=== PATIENT | female | born 1980 | race Caucasian/White ===

== ENCOUNTER 2019-05-08 10:15 | Emergency (ER) | payer BC ==
--- OUTSIDE RECORDS SUMMARY | 2019-05-08 10:17 | XMS REPORT | Continuity of Care Document ---
:1980 Author Organization Couple Care Team Providers Name Role Phone Couple Unavailable Unavailable Problems Problem Status Onset Classification Date Comments Source Date Reported Congestion of Diagnosis 02/21/2017 [facility] nasal sinus 7 Viral Diagnosis 02/21/2017 [facility] sinusitis 7 Medications Medication Details Route Status Patient Ordering Order Source Instructions Provider Date Medrol (Rony) Medrol Active [facility] 4 mg tablets (Rony) 4 mg in a dose tablets in pack a dose pack Take as directed Allergies, Adverse Reactions, Alerts No Known Medication Allergies Immunizations No Data Provided for This Section Results No Data Provided for This Section Pathology Reports No Data Provided for This Section Diagnostic Reports No Data Provided for This Section Consultation Notes No Data Provided for This Section Discharge Summaries No Data Provided for This Section History and Physicals No Data Provided for This Section Vital Signs Vital Sign Value Date Comments Source Diastolic (mm Hg) 70 02/21/2017 [facility] Height 64 02/21/2017 [facility] Systolic (mm Hg) 118 02/21/2017 [facility] Weight 250 02/21/2017 [facility] Encounters Location Location Encounter Encounter Reason Attending ADM DC Status Source Details Type Number For Provider Date Date Visit [place] - [place] [id number] [place] 02/21 [facility] Gopal Carrizales-d5ac-0 All Mena - PA-C: 8900 [id number] [address], [address], [place] [address] , Ph. Procedures No Data Provided for This Section Assessment and Plan No Data Provided for This Section Plan of Care No Data Provided for This Section Social History Social History Date Source Smoking Status 02/21/2017 [facility] Former Smoker Family History No Data Provided for This Section Advance Directives No Data Provided for This Section Functional Status No Data Provided for This Section
--- OUTSIDE RECORDS SUMMARY | 2019-05-08 10:18 | XMS REPORT ---
:1980 Author Organization [employer] Care Team Providers Name Role Phone Tanesha Desouza Provider Role Unavailable Allergies, Adverse Reactions, Alerts Substance Reaction Event Type N.K.D.A. Info Not Available Non Drug Allergy Problems Problem Type Condition Code Onset Dates Condition Status Problem Bloated abdomen R14.0 Active Problem Calculus of gallbladder with chronic K80.10 Active cholecystitis without obstruction Problem Cholelithiasis K80.20 Active Assessment Plantar fasciitis of left foot M72.2 Active Medications Medication Code System Code Instructions Start End Date Status Dosage Date Etodolac [facility] [id number] 300 MG Orally May 23, Active 1 capsule Twice a day 2018 with food Results No Known Results Summary Purpose eClinicalWorks Submission
[2019-05-08 11:21] LABS: Absolute Lymphocytes (CBC) 1.1 K/uL (0.7-4.9); Basophils % 0.4 % (0-1.3); Eosinophils % 0.3 % (0-4.4); Hematocrit 39.2 % (36.0-45.0); MPV 7.9 fL (7.6-11.3); Monocytes % 4.6 % (3.3-12.3); RBC Red Blood Cell Count 4.72 M/uL (3.86-4.86)
[2019-05-08 11:36] LABS: ALT/SGPT 19 U/L (12-78); AST/SGOT 11 U/L (15-37); Albumin 3.7 g/dL (3.4-5.0); Alkaline Phosphatase 65 U/L (45-117); BUN Blood Urea Nitrogen 11 mg/dL (7-18); Bicarbonate 27 mmol/L (21-32); Bilirubin Direct < 0.1 mg/dL (0-0.2); Bilirubin Total 0.6 mg/dL (0.2-1.0); Glucose Level 112 mg/dL (74-106); Lipase 91 U/L (73-393); Potassium 3.5 mmol/L (3.5-5.1); Protein, Total 7.9 g/dL (6.4-8.2); Sodium Level 143 mmol/L (136-145)
[2019-05-08 11:38] LABS: Urine Blood 3+ (NEG); Urine Glucose NEGATIVE (NEG); Urine Protein TRACE (NEG); Urine Specific Gravity 1.025 (1.005-1.030)
--- NOTE | 2019-05-08 12:06 | RAD REPORT ---
EXAM DESCRIPTION: CT - Abdomen Pelvis W Contrast - 05/08/2019 11:55 am CLINICAL HISTORY: Abdominal pain, right lower quadrant pain, history of gastric sleeve procedure, hi story of prior ectopic COMPARISON: CT imaging July 2017 TECHNIQUE: Biphasic, helical CT imaging of the abdomen and pelvis was performed following 100 ml non -ionic IV contrast. Oral contrast was given. All CT scans are performed using dose optimization technique as appropriate and may include automated exposure control or mA/KV adjustment according to patient size. FINDINGS: No suspicious findings in the lung bases. The liver, spleen, and pancreas show no suspicious findings. Cholecystectomy clips are present. No bi liary tree dilatation. Symmetric renal function is seen with no hydronephrosis or suspicious renal mass. No pyelonephritis o r acute parenchymal process. No bladder abnormalities. No adrenal abnormalities. No dilated bowel loops or bowel wall thickening. Retrocecal appendix is normal. No acute GI process s een. Uterus and ovaries show no suspicious findings. No free air, free fluid or inflammatory strandin g. No mass or bulky lymphadenopathy. Since the prior examination, the patient has developed in the supraumbilical ventral hernia. This her jennifer is immediately superior to the umbilicus measuring 5.3 cm in diameter with a 2.6 centimeter neck. Hernia contains only fat and there is no congestion or edema. No suspicious bony findings. 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 No finding to explain a predominant ly right lower quadrant pain pattern. As detailed above, no acute abdomen or pelvis finding. The patient has developed a 5 centimeter supra umbilical fat only ventral hernia since the 2017 comparison.
--- NOTE | 2019-05-08 12:52 | ER ---
Nurse's Notes [facility] Name: Carleen Navarro Age: 39 yrs Sex: Female : 1980 Arrival Date: 05/08/2019 Time: 10:17 Bed 13 Private MD: Diagnosis: Lower abdominal pain, unspecified Presentation: 05/08 10:36 Presenting complaint: Patient states: lower right quadrant pain since yesterday. ls4 Transition of care: patient was not received from another setting of care. Onset of symptoms was May 08, 2019 at 10:50. Risk Assessment: Do you want to hurt yourself or someone else? Patient reports no desire to harm self or others. Initial Sepsis Screen: Does the patient meet any 2 criteria? No. Patient's initial sepsis screen is negative. Does the patient have a suspected source of infection? No. Patient's initial sepsis screen is negative. Care prior to arrival: Medication(s) given: Aleve this morning. 10:36 Method Of Arrival: Ambulatory ls4 10:36 Acuity: CRISTI 3 ls4 Triage Assessment: 10:52 General: Appears uncomfortable, Behavior is calm, cooperative. Pain: Complains of pain ls4 in right lower quadrant Pain currently is 9 out of 10 on a pain scale. Quality of pain is described as crampy, sharp, stabbing. GI: Abdomen is non-distended, obese, Bowel sounds present X 4 quads. Abd is soft Abdomen is tender to palpation in right lower quadrant Reports vomiting, once this morning after taking aleve. Derm: Skin is Skin is pink, warm \T\ dry. Skin temperature is warm. 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 - Social history:: Smoking status: Patient/guardian denies using tobacco. - Ebola Screening: : Patient negative for fever greater than or equal to 101.5 degrees Fahrenheit, and additional compatible Ebola Virus Disease symptoms Patient denies exposure to infectious person Patient denies travel to an Ebola-affected area in the 21 days before illness onset No symptoms or risks identified at this time. Screenin:56 Abuse screen: Denies threats or abuse. Denies injuries from another. Nutritional ls4 screening: No deficits noted. Tuberculosis screening: No symptoms or risk factors identified. Fall Risk None identified. Assessment: 11:30 Reassessment: Patient appears in no apparent distress at this time. Patient and/or ls4 family updated on plan of care and expected duration. Pain level reassessed. Patient is alert, oriented x 3, equal unlabored respirations, skin warm/dry/pink. Vital Signs: 10:54 BP 174 / 101; Pulse 74; Resp 20; Temp 98.3(O); Pulse Ox 98% on R/A; Weight 129.27 kg; ls4 Height 5 ft. 4 in. (162.56 cm); Pain 9/10; 11:32 BP 146 / 78; Pulse 72; Resp 14; Pulse Ox 99% on R/A; Pain 5/10; ls4 13:06 BP 133 / 81; Pulse 71; Resp 16; Temp 98.2; Pulse Ox 99% on R/A; Pain 3/10; ls4 10:54 Body Mass Index 48.92 (129.27 kg, 162.56 cm) ls4 ED Course: 10:17 Patient arrived in ED. rg4 10:28 Melita Singh FNP-C [facility]. kb 10:28 Kevan Will MD is Attending Physician. kb 10:36 Linette De, PHILOMENA is Primary Nurse. ls4 10:45 No provider procedures requiring assistance completed. Initial lab(s) drawn, by ms, ls4 sent to lab. Inserted saline lock: 20 gauge in left antecubital area, using aseptic technique. Blood collected. 10:51 Triage completed. ls4 10:52 Urine collected: clean catch specimen, cloudy, erik colored. jb1 10:54 Arm band placed on. ls4 10:56 Patient has correct armband on for positive identification. ls4 13:01 CT Abd/Pelvis - IV Contrast Only Sent. ls4 13:11 IV discontinued, intact, bleeding controlled, No redness/swelling at site. Pressure ls4 dressing applied. Administered Medications: 12:27 CANCELLED (Duplicate Order): TORadol 30 mg IVP once kb 12:50 Drug: TORadol - Ketorolac 15 mg Route: IVP; Site: left antecubital; ls4 13:12 Follow up: Response: No adverse reaction; Marked relief of symptoms ls4 Outcome: 12:46 Discharge ordered by . jean 13:10 Discharged to home ambulatory, with family. ls4 13:10 Condition: good 13:10 Discharge instructions given to patient, family, Instructed on discharge instructions, follow up and referral plans. medication usage, safety practices, Demonstrated understanding of instructions, follow-up care, medications, Prescriptions given X 2. 13:25 Patient left the ED. ls4 Signatures: Vj Hamm jb1 Melita Singh, RESOURCING ADVISOR-C MARLA-Maggie Storey rg4 Linette De, RN RN ls4
--- NOTE | 2019-05-08 12:54 | EDPHYS ---
Physician Documentation [facility] Name: Carleen Navarro Age: 39 yrs Sex: Female : 1980 Arrival Date: 05/08/2019 Time: 10:17 Bed 13 Private MD: ED Physician Kevan Will HPI: 05/08 11:34 This 39 yrs old Female presents to ER via Ambulatory with complaints of kb Abdominal Cramping, Nausea. 11:34 The patient presents with abdominal pain in the lower abdomen. kb 11:35 Onset: The symptoms/episode began/occurred yesterday. The symptoms do not radiate. kb Associated signs and symptoms: Pertinent positives: nausea and vomiting, fever. The symptoms are described as constant. Modifying factors: The symptoms are alleviated by nothing, the symptoms are aggravated by movement. Severity of pain: At its worst the pain was moderate in the emergency department the pain is unchanged. The patient has not experienced similar symptoms in the past. The patient has not recently seen a physician. 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 - Social history:: Smoking status: Patient/guardian denies using tobacco. - Ebola Screening: : Patient negative for fever greater than or equal to 101.5 degrees Fahrenheit, and additional compatible Ebola Virus Disease symptoms Patient denies exposure to infectious person Patient denies travel to an Ebola-affected area in the 21 days before illness onset No symptoms or risks identified at this time. ROS: 11:31 ENT: Negative for injury, pain, and discharge, Neck: Negative for injury, pain, and kb swelling, Cardiovascular: Negative for chest pain, palpitations, and edema, Respiratory: Negative for shortness of breath, cough, wheezing, and pleuritic chest pain, Back: Negative for injury and pain, : Negative for injury, bleeding, discharge, and swelling, MS/Extremity: Negative for injury and deformity, Skin: Negative for injury, rash, and discoloration, Neuro: Negative for headache, weakness, numbness, tingling, and seizure. 11:31 Abdomen/GI: Positive for abdominal pain, nausea and vomiting, Negative for diarrhea, constipation, abdominal cramps, abdominal distension, anorexia, dysphagia. 11:33 Constitutional: Positive for fever. kb Exam: 11:33 Constitutional: This is a well developed, well nourished patient who is awake, alert, kb and in no acute distress. Head/Face: Normocephalic, atraumatic. Neck: Trachea midline, no thyromegaly or masses palpated, and no cervical lymphadenopathy. Supple, full range of motion without nuchal rigidity, or vertebral point tenderness. No Meningismus. Chest/axilla: Normal chest wall appearance and motion. Nontender with no deformity. No lesions are appreciated. Cardiovascular: Regular rate and rhythm with a normal S1 and S2. No gallops, murmurs, or rubs. Normal PMI, no JVD. No pulse deficits. Respiratory: Lungs have equal breath sounds bilaterally, clear to auscultation and percussion. No rales, rhonchi or wheezes noted. No increased work of breathing, no retractions or nasal flaring. Abdomen/GI: Soft, non-tender, with normal bowel sounds. No distension or tympany. No guarding or rebound. No evidence of tenderness throughout. Skin: Warm, dry with normal turgor. Normal color with no rashes, no lesions, and no evidence of cellulitis. MS/ Extremity: Pulses equal, no cyanosis. Neurovascular intact. Full, normal range of motion. Neuro: Awake and alert, GCS 15, oriented to person, place, time, and situation. Cranial nerves II-XII grossly intact. Motor strength 5/5 in all extremities. Sensory grossly intact. Cerebellar exam normal. Normal gait. Vital Signs: 10:54 BP 174 / 101; Pulse 74; Resp 20; Temp 98.3(O); Pulse Ox 98% on R/A; Weight 129.27 kg; ls4 Height 5 ft. 4 in. (162.56 cm); Pain 9/10; 11:32 BP 146 / 78; Pulse 72; Resp 14; Pulse Ox 99% on R/A; Pain 5/10; ls4 13:06 BP 133 / 81; Pulse 71; Resp 16; Temp 98.2; Pulse Ox 99% on R/A; Pain 3/10; ls4 10:54 Body Mass Index 48.92 (129.27 kg, 162.56 cm) ls4 MDM: 10:28 Patient medically screened. kb 10:55 Data reviewed: vital signs, nurses notes. Data interpreted: Pulse oximetry: on room air kb is 100 %. Interpretation: normal. 12:41 Counseling: I had a detailed discussion with the patient and/or guardian regarding: the kb historical points, exam findings, and any diagnostic results supporting the discharge/admit diagnosis, lab results, radiology results, the need for outpatient follow up, a family practitioner, to return to the emergency department if symptoms worsen or persist or if there are any questions or concerns that arise at home. 05/08 10:35 Order name: Basic Metabolic Panel; Complete Time: 11:43 kb 05/08 10:35 Order name: CBC with Diff kb 05/08 10:35 Order name: Hepatic Function; Complete Time: 11:43 kb 05/08 10:35 Order name: Lipase; Complete Time: 11:43 kb 05/08 10:51 Order name: Urine Dipstick--Ancillary (enter results); Complete Time: 11:43 eb 05/08 10:51 Order name: Urine --Ancillary (enter results); Complete Time: 11:43 eb 05/08 10:35 Order name: IV Saline Lock; Complete Time: 11:11 kb 05/08 10:35 Order name: Labs collected and sent; Complete Time: 11:11 kb 05/08 10:35 Order name: Urine Dipstick-Ancillary (obtain specimen); Complete Time: 10:52 kb 05/08 11:43 Order name: CT Abd/Pelvis - IV Contrast Only kb 05/08 12:22 Order name: CT; Complete Time: 12:26 EDMS Administered Medications: 12:27 CANCELLED (Duplicate Order): TORadol 30 mg IVP once kb 12:50 Drug: TORadol - Ketorolac 15 mg Route: IVP; Site: left antecubital; ls4 13:12 Follow up: Response: No adverse reaction; Marked relief of symptoms ls4 Disposition: 05/08/19 12:46 Discharged to Home. Impression: Lower abdominal pain, unspecified. - Condition is Stable. - Discharge Instructions: Abdominal Pain, Adult, [id number]. - Prescriptions for Zofran 4 mg Oral Tablet - take 1 tablet by ORAL route every 6 hours As needed; 20 tablet. Diclofenac Sodium 75 mg Oral Tablet, Delayed Release (E.C.) - take 1 tablet by ORAL route 2 times per day As needed; 30 tablet. - Medication Reconciliation Form, Thank You Letter, Antibiotic Education, Prescription Opioid Use form. - Follow up: Emergency Department; When: As needed; Reason: Worsening of condition. Follow up: Private Physician; When: 2 - 3 days; Reason: Recheck today's complaints, Continuance of care, Re-evaluation by your physician. Addendum: 05/13/2019 16:54 Co-signature as Attending Physician, Kevan Will MD I agree with the assessment and c roca plan of care. Signatures: Dispatcher [employer] EDMelita Coley, MARLA-Laila GUTIÉRREZ-Kevan Dawn MD MD cha Stewart, Lisa RN RN ls4 Corrections: (The following items were deleted from the chart) 05/08 11:31 11:28 Constitutional: This is a well developed, well nourished patient who is awake, kb alert, and in no acute distress. Head/Face: Normocephalic, atraumatic. Neck: Trachea midline, no thyromegaly or masses palpated, and no cervical lymphadenopathy. Supple, full range of motion without nuchal rigidity, or vertebral point tenderness. No Meningismus. Chest/axilla: Normal chest wall appearance and motion. Nontender with no deformity. No lesions are appreciated. Cardiovascular: Regular rate and rhythm with a normal S1 and S2. No gallops, murmurs, or rubs. Normal PMI, no JVD. No pulse deficits. Respiratory: Lungs have equal breath sounds bilaterally, clear to auscultation and percussion. No rales, rhonchi or wheezes noted. No increased work of breathing, no retractions or nasal flaring. Abdomen/GI: Soft, non-tender, with normal bowel sounds. No distension or tympany. No guarding or rebound. No evidence of tenderness throughout. Skin: Warm, dry with normal turgor. Normal color with no rashes, no lesions, and no evidence of cellulitis. MS/ Extremity: Pulses equal, no cyanosis. Neurovascular intact. Full, normal range of motion. Neuro: Awake and alert, GCS 15, oriented to person, place, time, and situation. Cranial nerves II-XII grossly intact. Motor strength 5/5 in all extremities. Sensory grossly intact. Cerebellar exam normal. Normal gait. kb 11:28 Constitutional: This is a well developed, well nourished patient who is awake, kb alert, and in no acute distress. Head/Face: Normocephalic, atraumatic. Neck: Trachea midline, no thyromegaly or masses palpated, and no cervical lymphadenopathy. Supple, full range of motion without nuchal rigidity, or vertebral point tenderness. No Meningismus. Chest/axilla: Normal chest wall appearance and motion. Nontender with no deformity. No lesions are appreciated. Cardiovascular: Regular rate and rhythm with a normal S1 and S2. No gallops, murmurs, or rubs. Normal PMI, no JVD. No pulse deficits. Respiratory: Lungs have equal breath sounds bilaterally, clear to auscultation and percussion. No rales, rhonchi or wheezes noted. No increased work of breathing, no retractions or nasal flaring. Abdomen/GI: Soft, non-tender, with normal bowel sounds. No distension or tympany. No guarding or rebound. No evidence of tenderness throughout. Skin: Warm, dry with normal turgor. Normal color with no rashes, no lesions, and no evidence of cellulitis. MS/ Extremity: Pulses equal, no cyanosis. Neurovascular intact. Full, normal range of motion. Neuro: Awake and alert, GCS 15, oriented to person, place, time, and situation. Cranial nerves II-XII grossly intact. Motor strength 5/5 in all extremities. Sensory grossly intact. Cerebellar exam normal. Normal gait. kb 11:31 ENT: TM's: fluid levels, bilaterally, kb 11:29 Constitutional: Negative for fever, chills, and weight loss, Neck: Negative for kb injury, pain, and swelling, Cardiovascular: Negative for chest pain, palpitations, and edema, Abdomen/GI: Negative for abdominal pain, nausea, vomiting, diarrhea, and constipation, Back: Negative for injury and pain, MS/Extremity: Negative for injury and deformity, Skin: Negative for injury, rash, and discoloration, Neuro: Negative for headache, weakness, numbness, tingling, and seizure, 11:29 ENT: Positive for rhinorrhea, kb kb 11:33 11:29 Respiratory: Positive for cough, Negative for dyspnea on exertion, hemoptysis, kb orthopnea, pleurisy, shortness of breath, sputum production, wheezing, acute changes, kb 11:33 11:31 Constitutional: Negative for fever, chills, and weight loss, ENT: Negative for kb injury, pain, and discharge, Neck: Negative for injury, pain, and swelling, Cardiovascular: Negative for chest pain, palpitations, and edema, Respiratory: Negative for shortness of breath, cough, wheezing, and pleuritic chest pain, Back: Negative for injury and pain, : Negative for injury, bleeding, discharge, and swelling, MS/Extremity: Negative for injury and deformity, Skin: Negative for injury, rash, and discoloration, Neuro: Negative for headache, weakness, numbness, tingling, and seizure, kb 12:27 12:27 TORadol 30 mg IVP once ordered. kb 13:25 12:46 05/08/2019 12:46 Discharged to Home. Impression: Lower abdominal pain, ls4 unspecified. Condition is Stable. Forms are Medication Reconciliation Form, Thank You Letter, Antibiotic Education, Prescription Opioid Use. Follow up: Emergency Department; When: As needed; Reason: Worsening of condition. Follow up: Private Physician; When: 2 - 3 days; Reason: Recheck today's complaints, Continuance of care, Re-evaluation by your physician. kb
[2019-05-08] MEDS ORDERED: KETOROLAC 30 MG/ML INJ ONE (13:07)
== END 2019-05-08 13:25 | disposition home or self-care (01) ==
LOC: ER 10:15
DX: R10.30 Lower abdominal pain, unspecified (principal)
CPT/HCPCS: 36415; 74177; 80048; 80076; 81003; 81025; 83690; 85025; 96374; 99284; Q9967

== ENCOUNTER 2019-07-02 19:28 | Emergency (ER) | payer BC ==
--- OUTSIDE RECORDS SUMMARY | 2019-07-02 19:29 | XMS REPORT | Continuity of Care Document ---
:1980 Author Organization [employer] Care Team Providers Name Role Phone [employer] Unavailable Unavailable Problems Problem Status Onset Classification [...] Provider Date Date Visit [place] - [place] [id number] [place] 02/21 [facility] Gopal [id number]-[id number] All Mena - PA-C: 8900 [id number] [address], [address], [place] [address] , Ph. Procedures No Data Provided for [...]
--- OUTSIDE RECORDS SUMMARY | 2019-07-02 19:29 | XMS REPORT ---
[...] Start End Date Status Dosage Date Etodolac [facility] [id number] 300 MG Orally May 23, Active 1 capsule Twice a day 2018 with food Results No Known Results Summary Purpose eClinicalWorks Submission
[2019-07-02] MEDS ORDERED: NA CHLORIDE 0.9% 1,000 ML ONE (20:23)
[2019-07-02] MEDS ORDERED: KETOROLAC 30 MG/ML INJ ONE (20:23)
[2019-07-02] MEDS ORDERED: ONDANSETRON 4 MG/2 ML VIAL ONE (20:23)
[2019-07-02 20:48] LABS: Absolute Lymphocytes (CBC) 1.4 K/uL (0.7-4.9); Basophils % 0.8 % (0-1.3); Hematocrit 38.6 % (36.0-45.0); Lymphocytes % 13.9 % (15.3-44.8); MPV 8.4 fL (7.6-11.3); RBC Red Blood Cell Count 4.58 M/uL (3.86-4.86)
[2019-07-02 21:04] LABS: ALT/SGPT 28 U/L (12-78); AST/SGOT 14 U/L (15-37); Albumin 3.8 g/dL (3.4-5.0); Alkaline Phosphatase 58 U/L (45-117); BUN Blood Urea Nitrogen 15 mg/dL (7-18); Bicarbonate 24 mmol/L (21-32); Bilirubin Direct < 0.1 mg/dL (0-0.2); Bilirubin Total 0.3 mg/dL (0.2-1.0); Glucose Level 111 mg/dL (74-106); Lipase 101 U/L (73-393); Potassium 3.4 mmol/L (3.5-5.1); Protein, Total 7.8 g/dL (6.4-8.2); Sodium Level 143 mmol/L (136-145)
[2019-07-02 21:43] LABS: Urine Blood 3+ (NEG); Urine Glucose NEGATIVE (NEG); Urine Protein NEGATIVE (NEG); Urine Specific Gravity >1.030 (1.005-1.030); Urine pH 5.5 (5.0-7.0)
--- NOTE | 2019-07-02 23:08 | ER ---
Nurse's Notes [facility] Name: Carleen Navarro Age: 39 yrs Sex: Female : 1980 Arrival Date: 07/02/2019 Time: 19:30 Bed 26 Private MD: Diagnosis: Nausea and vomiting Presentation: 07/02 19:36 Presenting complaint: Patient states: "I have really bad menstral cramps, I've had them aj1 off and on but this one isn't giving me any release. I made an appointment with my [facility] but they can't get me into until July 14. When the pain comes on I get sick and I throw up" Reports right lower abdominal pain for the past 5 days. Reports that she is taking Tylenol with no relief. Transition of care: patient was not received from another setting of care. Onset of symptoms was June 2019. Risk Assessment: Do you want to hurt yourself or someone else? Patient reports no desire to harm self or others. Initial Sepsis Screen: Does the patient meet any 2 criteria? HR > 90 bpm. No. Patient's initial sepsis screen is negative. Does the patient have a suspected source of infection? Yes: Acute abdominal pain. Care prior to arrival: None. 19:36 Method Of Arrival: Ambulatory aj 19:36 Acuity: CRISTI 3 aj1 Triage Assessment: 19:38 General: Appears uncomfortable, Behavior is cooperative, anxious, restless. Pain: aj1 Complains of pain in abdomen Pain currently is 10 out of 10 on a pain scale. Neuro: Level of Consciousness is awake, alert, obeys commands. Cardiovascular: Patient's skin is warm and dry. Respiratory: Airway is patent Respiratory effort is even, unlabored, Respiratory pattern is regular, symmetrical. Musculoskeletal: Range of motion: intact in all extremities. 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 - Social history:: Smoking status: Patient/guardian denies using tobacco. - Ebola Screening: : Patient denies travel to an Ebola-affected area in the 21 days before illness onset. Screenin:36 Abuse screen: Denies threats or abuse. Denies injuries from another. Nutritional mg2 screening: No deficits noted. Tuberculosis screening: No symptoms or risk factors identified. Fall Risk IV access (20 points). Assessment: 21:41 General: Appears in no apparent distress. uncomfortable, Behavior is anxious. Pain: mg2 Complains of pain in abdomen Pain does not radiate. Pain currently is 8 out of 10 on a pain scale. Quality of pain is described as aching, Pain began gradually, 2-3 days ago. Is intermittent. Neuro: Level of Consciousness is awake, alert, obeys commands, Oriented to person, place, time, situation. Cardiovascular: Capillary refill < 3 seconds Patient's skin is warm and dry. Respiratory: Airway is patent Respiratory effort is even, unlabored, Respiratory pattern is regular, symmetrical. GI: Reports lower abdominal pain, nausea. : Reports burning with urination, pain in right in suprapubic area in lower back. EENT: No signs and/or symptoms were reported regarding the EENT system. Derm: Skin is intact, is healthy with good turgor, Skin is pink, warm \\T\\ dry. normal. Musculoskeletal: Circulation, motion, and sensation intact. Capillary refill < 3 seconds. 21:46 Reassessment: patient sent to ct scan via wheelchair. mg2 23:20 Reassessment: Patient denies pain at this time. Patient states feeling better. Patient mg2 states symptoms have improved. Vital Signs: 19:38 BP 168 / 100; Pulse 99; Resp 18; Temp 98.7; Pulse Ox 97% on R/A; Weight 127.01 kg (R); aj1 Height 5 ft. 4 in. (162.56 cm) (R); Pain 10/10; 22:20 BP 122 / 69; Pulse 76; Resp 18; Pulse Ox 100% ; Pain 1/10; mg2 23:20 BP 118 / 70; Pulse 70; Resp 18; Temp 98; Pulse Ox 100% on R/A; Pain 0/10; mg2 19:38 Body Mass Index 48.06 (127.01 kg, 162.56 cm) aj1 ED Course: 19:30 Patient arrived in ED. cl3 19:38 Triage completed. aj1 19:38 Arm band placed on Patient placed in an exam room. aj1 19:53 Imtiaz Garcias RN is Primary Nurse. mg2 20:01 Kevan Aponte PA is PHCP. cp 20:01 Juan Carlos Hunter MD is Attending Physician. cp 20:19 Radiology exam delayed due to test not completed at this time. vm2 20:36 Patient has correct armband on for positive identification. mg2 20:36 No provider procedures requiring assistance completed. Inserted saline lock: 20 gauge mg2 in right upper arm, using aseptic technique. Blood collected. 20:45 Radiology exam delayed due to test not completed at this time. vm2 21:26 Radiology exam delayed due to test not completed at this time. vm2 22:16 PHCP role handed off by Kevan Aponte PA jr8 22:16 Diogenes Ahn PA is PHCP. jr8 23:20 IV discontinued, intact, bleeding controlled, No redness/swelling at site. Pressure mg2 dressing applied. 07/03 06:35 CT Stone Protocol In Process Unspecified. EDMS Administered Medications: 07/02 20:35 Drug: NS 0.9% 1000 ml Route: IV; Rate: 1 bolus; Site: right upper arm; mg2 21:32 Follow up: Response: No adverse reaction; IV Status: Completed infusion; IV Intake: mg2 1000ml 20:35 Drug: Zofran 4 mg Route: IVP; Site: right upper arm; mg2 21:32 Follow up: Response: No adverse reaction; Marked relief of symptoms mg2 20:35 Drug: TORadol 30 mg Route: IVP; Site: right upper arm; mg2 21:32 Follow up: Response: No adverse reaction; Marked relief of symptoms mg2 Intake: 21:32 IV: 1000ml; Total: 1000ml. mg2 Outcome: 23:06 Discharge ordered by . jr8 23:20 Discharged to home ambulatory, with family. mg2 23:20 Condition: stable 23:20 Discharge instructions given to patient, family, Instructed on discharge instructions, follow up and referral plans. medication usage, Demonstrated understanding of instructions, follow-up care, medications, Prescriptions given X 3. 23:21 Patient left the ED. mg2 Signatures: Dispatcher [employer] EDMS Ysabel Pederson RN RN aj1 Diogenes Ahn PA PA jr8 Page, Corey, PA PA cp McGuire, Victoria 2 Imtiaz Garcias, RN RN mg2 Mikal Luis cl3
--- NOTE | 2019-07-02 23:10 | EDPHYS ---
Physician Documentation [facility] Name: Carleen Navarro Age: 39 yrs Sex: Female : 1980 Arrival Date: 07/02/2019 Time: 19:30 Bed 26 Private MD: ED Physician Juan Carlos Hunter HPI: 07/02 20:05 This 39 yrs old Female presents to ER via Ambulatory with complaints of Back cp Pain, Nausea/Vomiting. 20:05 The patient presents with pain flank pain. The symptoms are located in the right flank. cp Onset: The symptoms/episode began/occurred today. Associated signs and symptoms: Pertinent positives: nausea, vomiting, urinary frequency and urgency. Severity of symptoms: in the emergency department the symptoms are unchanged, despite home interventions. 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 - Social history:: Smoking status: Patient/guardian denies using tobacco. - Ebola Screening: : Patient denies travel to an Ebola-affected area in the 21 days before illness onset. ROS: 20:10 Constitutional: Positive for poor PO intake, Negative for body aches, chills, fever. cp 20:10 Eyes: Negative for injury, pain, redness, and discharge. cp 20:10 ENT: Negative for drainage from ear(s), ear pain, sore throat, difficulty swallowing, difficulty handling secretions. 20:10 Cardiovascular: Negative for chest pain, edema, palpitations. 20:10 Respiratory: Negative for cough, shortness of breath, wheezing. 20:10 Abdomen/GI: Positive for abdominal pain, nausea and vomiting, Negative for diarrhea, constipation, black/tarry stool, bowel incontinence. 20:10 Back: Positive for pain at rest, radiated pain, of the right low back. 20:10 : Positive for urinary frequency, vaginal bleeding. 20:10 All other systems are negative. Exam: 20:15 Constitutional: The patient appears in no acute distress, alert, awake, cp non-diaphoretic, non-toxic, well developed, well nourished, obese, uncomfortable. 20:15 Head/Face: Normocephalic, atraumatic. cp 20:15 Eyes: Periorbital structures: appear normal, Conjunctiva: normal, no exudate, no injection, Sclera: no appreciated abnormality, Lids and lashes: appear normal, bilaterally. 20:15 ENT: External ear(s): are unremarkable, Nose: is normal, Mouth: is normal, Posterior pharynx: is normal, airway is patent, no erythema, no exudate. 20:15 Neck: ROM/movement: is normal, is supple, without pain, no range of motions limitations. 20:15 Chest/axilla: Inspection: normal, Palpation: is normal, no crepitus, no tenderness. 20:15 Cardiovascular: Rate: normal, Rhythm: regular. 20:15 Respiratory: the patient does not display signs of respiratory distress, Respirations: normal, no use of accessory muscles, no retractions, no splinting, no tachypnea, labored breathing, is not present, Breath sounds: are clear throughout, no decreased breath sounds, no stridor, no wheezing. 20:15 Abdomen/GI: Inspection: obese Bowel sounds: active, all quadrants, Palpation: soft, in all quadrants, moderate abdominal tenderness, in the right lower quadrant, rebound tenderness, is not appreciated. 20:15 Back: pain, that is moderate, of the right low back, ROM is normal. 20:15 Skin: no rash present. 20:15 Neuro: Orientation: to person, place \T\ time. Mentation: is normal, Motor: moves all fours, strength is normal, Sensation: no obvious gross deficits. Vital Signs: 19:38 BP 168 / 100; Pulse 99; Resp 18; Temp 98.7; Pulse Ox 97% on R/A; Weight 127.01 kg (R); aj1 Height 5 ft. 4 in. (162.56 cm) (R); Pain 10/10; 22:20 BP 122 / 69; Pulse 76; Resp 18; Pulse Ox 100% ; Pain 1/10; mg2 23:20 BP 118 / 70; Pulse 70; Resp 18; Temp 98; Pulse Ox 100% on R/A; Pain 0/10; mg2 19:38 Body Mass Index 48.06 (127.01 kg, 162.56 cm) aj1 MDM: 20:02 Patient medically screened. cp 23:04 Data reviewed: vital signs, nurses notes, lab test result(s), radiologic studies, CT jr8 scan. Data interpreted: Pulse oximetry: on room air is 100 %. Interpretation: normal. Counseling: I had a detailed discussion with the patient and/or guardian regarding: the historical points, exam findings, and any diagnostic results supporting the discharge/admit diagnosis, lab results, radiology results, the need for outpatient follow up, a family practitioner, to return to the emergency department if symptoms worsen or persist or if there are any questions or concerns that arise at home. Response to treatment: the patient's symptoms have mildly improved after treatment. 23:13 Differential diagnosis: Hydronephrosis Neoplasm Pyelonephritis ruptured disc, jr8 sprain, Ureterolithiasis colitis, appendicitis. Special discussion: Based on the patient's Hx, exam, and Dx evaluation, there is no indication for emergent surgery or inpatient Tx. It is understood by the patient/guardian that if the Sx's persist or worsen they need to return immediately for re-evaluation. 07/02 20:02 Order name: Basic Metabolic Panel 07/02 20:02 Order name: CBC with Diff 07/02 20:02 Order name: Creatinine for Radiology 07/02 20:02 Order name: Hepatic Function 07/02 20:02 Order name: Lipase 07/02 20:53 Order name: CBC with Automated Diff; Complete Time: 21:19 EDMS 07/02 21:19 Interpretation: Normal except: TIANA% 79.8; LYM% 13.9. 07/02 20:16 Order name: CT Stone Protocol 07/02 21:05 Order name: Basic Metabolic Panel; Complete Time: 21:19 EDMS 07/02 21:42 Interpretation: Normal except: K 3.4; GLUC 111; GFR 67. 07/02 21:05 Order name: Liver (Hepatic) Function; Complete Time: 21:19 EDMS 07/02 21:42 Interpretation: Normal except: AST 14; GLOB 4.0; A/G 1.0. 07/02 21:05 Order name: Lipase; Complete Time: 21:19 EDMS 07/02 21:34 Order name: Urine Dipstick--Ancillary (enter results) ar5 07/02 21:34 Order name: Urine --Ancillary (enter results) ar5 07/02 21:45 Order name: Urine --Ancillary; Complete Time: 22:16 EDMO 07/02 21:45 Order name: Urine Dipstick-Ancillary; Complete Time: 22:16 EDMO 07/02 20:02 Order name: Urine Dipstick-Ancillary (obtain specimen); Complete Time: 21:33 cp 07/02 20:02 Order name: Urine Test (obtain specimen); Complete Time: 21:33 cp 07/02 20:02 Order name: IV Saline Lock; Complete Time: 20:21 cp 07/02 20:02 Order name: Labs collected and sent; Complete Time: 20:21 cp Administered Medications: 20:35 Drug: NS 0.9% 1000 ml Route: IV; Rate: 1 bolus; Site: right upper arm; mg2 21:32 Follow up: Response: No adverse reaction; IV Status: Completed infusion; IV Intake: mg2 1000ml 20:35 Drug: Zofran 4 mg Route: IVP; Site: right upper arm; mg2 21:32 Follow up: Response: No adverse reaction; Marked relief of symptoms mg2 20:35 Drug: TORadol 30 mg Route: IVP; Site: right upper arm; mg2 21:32 Follow up: Response: No adverse reaction; Marked relief of symptoms mg2 Disposition: 07/02/19 23:06 Discharged to Home. Impression: Nausea and vomiting. - Condition is Stable. - Discharge Instructions: Abdominal Pain, Adult, Nausea and Vomiting, Adult. - Prescriptions for Zofran 4 mg Oral Tablet - take 1 tablet by ORAL route every 12 hours As needed; 20 tablet. Ibuprofen 800 mg Oral Tablet - take 1 tablet by ORAL route every 12 hours As needed take with food; 20 tablet. Tramadol 50 mg Oral Tablet - take 1 tablet by ORAL route every 8 hours as needed; 12 tablet. - Medication Reconciliation Form, Thank You Letter, Antibiotic Education, Prescription Opioid Use form. - Follow up: Private Physician; When: 2 - 3 days; Reason: Recheck today's complaints, Continuance of care, Re-evaluation by your physician. - Problem is new. - Symptoms have improved. Signatures: Dispatcher [facility] Ysabel Pederson RN RN aj1 Diogenes Ahn PA PA jr8 Kevan Aponte PA PA cp Imtiaz Garcias, RN RN mg2 Corrections: (The following items were deleted from the chart) 23:21 23:06 07/02/2019 23:06 Discharged to Home. Impression: Nausea and vomiting. Condition mg2 is Stable. Forms are Medication Reconciliation Form, Thank You Letter, Antibiotic Education, Prescription Opioid Use. Follow up: Private Physician; When: 2 - 3 days; Reason: Recheck today's complaints, Continuance of care, Re-evaluation by your physician. Problem is new. Symptoms have improved. jr8 07/03 21:07/01 20:15 Constitutional: The patient appears in no acute distress, alert, awake, cp non-toxic, well developed, well nourished, obese, uncomfortable, cp 07/03 21:07/01 20:15 Head/Face: Normocephalic, atraumatic. cp cp 07/03 21:07/01 20:15 Eyes: Periorbital structures: appear normal, Conjunctiva: normal, no cp exudate, no injection, Sclera: no appreciated abnormality, Lids and lashes: appear normal, bilaterally, cp 07/03 21:07/01 20:15 ENT: External ear(s): are unremarkable, Nose: is normal, Mouth: Lips: cp moist, Oral mucosa: pink and intact, moist, Posterior pharynx: is normal, airway is patent, cp 07/03 21:07/01 20:15 Neck: ROM/movement: is normal, is supple, without pain, no range of motions cp limitations, no meningismus, no nuchal rigidity, cp 07/03 21:07/01 20:15 Chest/axilla: Inspection: normal, Palpation: is normal, no crepitus, no cp tenderness, cp 07/03 21:07/01 20:15 Cardiovascular: Rate: normal, Rhythm: regular, cp cp 07/03 21:07/01 20:15 Respiratory: the patient does not display signs of respiratory distress, cp Respirations: normal, no use of accessory muscles, no retractions, no splinting, no tachypnea, labored breathing, is not present, Breath sounds: are clear throughout, no decreased breath sounds, rhonchi, no stridor, no wheezing, cp 07/03 21:07/01 20:15 Abdomen/GI: Inspection: obese Bowel sounds: active, all quadrants, cp Palpation: soft, in all quadrants, mild abdominal tenderness, in the right lower quadrant, rebound tenderness, is not appreciated, voluntary guarding, is not appreciated, involuntary guarding, is not appreciated, cp 07/03 21:07/01 20:15 Back: pain, that is moderate, of the right low back, ROM is normal, cp cp 07/03 21:07/01 20:15 Neuro: Orientation: to person, place \T\ time. Mentation: is normal, Motor: cp moves all fours, strength is normal, Sensation: is normal, cp 07/03 21:56 07/01 20:15 Skin: no rash present. cp cp
--- NOTE | 2019-07-03 10:48 | RAD REPORT ---
EXAM DESCRIPTION: CT ABDOMEN PELVIS WITHOUT IV CONTRAST COMPARISON: None Indication: Flank pain TECHNIQUE: Multiple helical axial images were obtained through the abdomen and pelvis without intrav enous contrast. Sagittal and coronal reformatted images are reviewed as well. All CT scans at this facility use dose modulation, iterative reconstruction, and/or weight-based dosi ng when appropriate to reduce radiation dose to as low as reasonably achievable. FINDINGS: Lung bases: Unremarkable. Liver: Homogenous attenuation is demonstrated. Gallbladder/biliary: Cholecystectomy changes are present. No evidence of biliary ductal dilatation. Pancreas: Unremarkable. Spleen: Unremarkable. Adrenals: Unremarkable. Kidneys and ureters: No evidence of renal or ureteral stones. No hydronephrosis. Bladder: Unremarkable. Pelvic organs: Unremarkable. Bowel: Postoperative changes of the stomach noted. No evidence of bowel obstruction. No bowel wall th ickening. Appendix appears unremarkable. Peritoneum: No free air. No significant free fluid. Lymph nodes: Unremarkable. Vasculature: Unremarkable. Soft tissues: There is a small supraumbilical ventral midline abdominal wall hernia containing fat. Bones: Old fracture of the posterior left 10th rib noted. IMPRESSION: 1. No evidence for an acute process within the abdomen or pelvis. 2. Small fat-containing ventral midline abdominal wall hernia. Electronically signed by: Rodrigo Vega MD 07/02/2019 10:40 PM CDT Due to temporary technical issues with the PACS/Fluency reporting system, reports are being signed by the in house radiologist as a courtesy to ensure prompt reporting. The interpreting radiologist is f ully responsible for the content of the report.
== END 2019-07-02 23:21 | disposition home or self-care (01) ==
LOC: ER 19:28
DX: R11.2 Nausea with vomiting, unspecified (principal)
CPT/HCPCS: 96361; 85025; 80048; 36415; 81025; 80076; 81003; 83690; 76377; 74176; 96375; 96374; 99284; J7030; J2405

== ENCOUNTER 2024-04-07 09:15 | Day surgery (SDC) | payer BC ==
[2024-04-07 09:40] LABS: Anion Gap 3.8 mEq/L (5.0-15.0); Potassium 3.8 mEq/L (3.5-5.1)
[2024-04-07] MEDS: Ringers Lactate 1,000 ML IV ONE (09:40)
[2024-04-07] MEDS ORDERED: dexAMETHasone 10 MG/ML VIAL ONE ×2 (11:44→12:54)
[2024-04-07] MEDS ORDERED: ROCURONIUM 50 MG/5 ML VIAL IV ONE ×2 (11:44→12:39)
[2024-04-07] MEDS ORDERED: propofoL 200 MG/20 ML VIAL IV ONE (11:44)
[2024-04-07] MEDS ORDERED: ONDANSETRON 4 MG/2 ML VIAL ONE (11:44)
[2024-04-07] MEDS ORDERED: FENTANYL CITR 100 MCG/2 ML ONE (11:44)
[2024-04-07] MEDS ORDERED: LIDOCAINE 2% MPF 5 ML VIAL ONE (11:44)
[2024-04-07] MEDS ORDERED: KETOROLAC 30 MG/ML INJ ONE (11:44)
[2024-04-07] MEDS ORDERED: MIDAZOLAM HCL 2 MG/2 ML INJ ONE (11:44)
[2024-04-07] MEDS: CEFAZOLIN SODIUM 2 GM/VIAL ONE (12:02)
[2024-04-07] MEDS: BUPIVACAINE 0.25% PF 30 ML VIAL ONE (12:22)
[2024-04-07] MEDS ORDERED: EPINEPHRINE 1 MG/ML VIAL ONE ×2 (12:54→12:56)
[2024-04-07] MEDS ORDERED: BUPIVACAINE 0.25% PF 10 ML VIAL ONE (12:54)
--- NOTE | 2024-04-07 13:17 | EKG ---
Test Date: 2024-04-07 Test Time: 09:02:48 Account Retention Representative: KADEN MEASUREMENT RESULTS: Intervals: Rate: 64 UT: 134 QRSD: 84 QT: 420 QTc: 433 Mabie: P: 54 UT: 134 QRS: 28 T: 46 INTERPRETIVE STATEMENTS: Normal sinus rhythm Normal ECG Compared to ECG 08/06/2016 03:27:06 No significant changes Electronically Signed On 04-07-24 13:16:03 CDT by Manuel Schaeffer
--- NOTE | 2024-04-07 13:18 | P.OP ---
Preoperative diagnosis: Supraumbilical Hernia Postoperative diagnosis: Supraumbilical Hernia Primary procedure: Laparoscopic Ventral Supraumbilical hernia repair with mesh Anesthesia: GETA + Local Estimated blood loss: <2cc Specimen: None Findings: ~ 3cm ventral supraumbilical incarcerated adipose hernia Complications: None Implants: Bard Ventralite ST 11.4cm Round mesh, Sorbafix x 30, Absorbatack Transferred to: Recovery Room Condition: Good
[2024-04-07] MEDS ORDERED: MEPERIDINE HCL 25 MG/ML SYR ONE (13:55)
[2024-04-07] MEDS: MEPERIDINE HCL 25 MG/ML SYR ONE (13:56)
[2024-04-07 14:43] VITALS: TEMP 97; O2SAT 97
[2024-04-07 15:06] VITALS: BP 133/80
--- NOTE | 2024-04-08 00:59 | OP ---
Date of Procedure: 04/07/2024 Surgeon: Óscar Murillo MD, Preoperative Diagnosis: Umbilical hernia. Postoperative Diagnosis: Umbilical hernia. Procedure Performed: Laparoscopic ventral supraumbilical hernia repair with mesh. Anesthesia: General endotracheal plus local with 0.25% Marcaine. Estimated Blood Loss: Less than 2 cc. Specimen: None. Findings: Approximately 3 cm ventral supraumbilical incarcerated adipose containing hernia. Complications: None. Implants: Bard Ventralight ST mesh with Echo positioning System, 11.4 cm round mesh utilized, SorbaF ix absorbable fixation tacks, 30 tacks used, AbsorbaTack absorbable tacks, 30 used. Disposition: Patient transferred to recovery room in good condition. Procedure In Detail: After informed consent was obtained, patient brought to the operating room, pre pped and draped in the usual sterile fashion. After adequate anesthesia achieved, I made an incision in the left lower quadrant down to subcutaneous tissue. 5 mm 0 degree optical trocar introduced in the abdomen without incident or complication. Insufflation was obtained to 15 mmHg at this time. Th ere was no injury to vital structures upon entry in the abdomen. Additional trocar placed in the lef t mid abdomen. This was similarly anesthetized and sharply incised, and a 12 mm trocar was placed un shyanne direct visualization without incident or complication. Insufflation was maintained at 15 mmHg wi thout incident or complication. At this point, I used blunt dissection to remove incarcerated adipos e tissue from the supraumbilical hernia, which was approximately 3 cm in size. At this point, after it was reduced in the normal anatomic position, I used the Endo Stitch with an 0 V-Loc suture to clos e the hernia defect, imbricating the hernia sac at this point with good apposition of the tissues at this point. I then deployed 11.4 cm Bard Ventralight mesh with Echo Positioning System with the cent er portion of the defect secured to the anterior abdominal wall using a single crown of SorbaFix abso rbable tacks. At this point, the balloon deployment system was removed, found to be intact on the ba ck table. I then secured a total of 30 tacks to the anterior bowel wall. I then brought the Covidie n AbsorbaTack absorbable fixation tacker and used an additional 30 tacks to secure the mesh to the an terior abdominal wall with a double crown type orientation. At this point, there were no hemostatic maneuvers required. There was no injury to vital structures throughout the abdomen. At this point, I closed the 12 mm trocar site using a Ronan-Miah suture passer with 0 Vicryl in interrupted fas hion. Good approximation of tissue. The abdomen was desufflated under direct vision without inciden t or complication. Remaining trocars removed. All skin incisions were then copiously irrigated and closed with a 4-0 Monocryl in a running fashion. Dermabond was placed over top. The patient tolerat ed the procedure well without incident or complication, transferred to the PACU in good condition. A ll counts were correct at the end of the case. TK/MODL Voice ID: [id number] Report ID: [id number]
== END 2024-04-07 14:55 | disposition home or self-care (01) ==
LOC: OR 09:15
PROVIDERS: ATTEND Surgery
PROC: 0WUF4JZ Supplement Abdominal Wall with Synthetic Substitute, Percutaneous Endoscopic Approach (ICD-10-PCS; principal; 2024-04-07 12:00)
DX: K42.9 Umbilical hernia without obstruction or gangrene (principal)
CPT/HCPCS: 93005; 80048; 36415; 84703; 49593; J2704; J2001; J2250; J3010; J1100 ×2; J2175; J0171 ×2; J2405; J7120; C1781

== ENCOUNTER 2025-02-19 04:27 | Emergency (ER) | payer BC ==
--- OUTSIDE RECORDS SUMMARY | 2025-02-19 04:31 | XMS REPORT | Continuity of Care Document ---
Author Name Unknown Address [address] [facility] [address] [place] [address] [facility] Address [address] [facility] [address] [place] [address] Care Team Providers Care [employer] Labou[employer] Name Role Phone Fawn Desouza Primary Care Physician [phone] Fawn Desouza Attending Clinician Unavailable LELA CAPUTO Attending Clinician Unavailable LELA CAPUTO Attending Clinician Unavailable Lela Caputo PA-C Attending Clinician [phone] ELANA ORDAZ Attending Clinician Unavailable [email or web address]_Bigga_S Attending Clinician Unavaila ble EBCARLEE HOBBS Attending Clinician Unavailable Ebrahim Carlee GUTIÉRREZ Attending Clinician [phone] Unknown, Attending Attending Clinician Unavailab le Doctor Unassigned, Conception Attending Clinician U Sandra Sims MD Attending Clinician [phone] EZRA MARIE Attending Clinician Unavailable Lab, Adc Fam Pob I Attending Clinician Unavailab ESTHER Sweet Attending Clinician Unavailab Esther Lorenz Attending Clinician + [phone] [email or web address]_S Admitting Clinician Unavaila ble Payers Payer Name Policy Type Policy Number Effective Date Expirati on Date Source [facility] [id number] 2020 00:00:00 [facility] [id number] [facility] C1 [id number] 2016 00:00:00 [facility] Problems Condition Name Condition Details Condition Category Status Onset Date Resolution Date Last Treatment Date Treating Clinician Comments Source [id number] Primary hypertensi on Problem [facility] Hernia Hernia Problem [facility] [id number] BMI 45.0-49.9, adult Problem Active [facility] [id number] Pharyngiti s, unspecifie d etiology Problem Active [facility] No known active problems No known active problems Disease [facility] Allergies, Adverse Reactions, Alerts Allergy Name Allergy Type Status Severity Reaction(s) Onset Date Inactive Date Treating Clinician Comments Source NO KNOWN ALLERGIE S Drug Class Active [facility] Social History Social Habit Start Date Stop Date Quantity Comments Source History of Tobacco Use [facility] Sex Assigned At [facility] Sexual orientation U [facility] Tobacco use and exposure 2025-02-10 00:00:00 2025-02-10 00:00:00 Smokeless tobacco non-user [facility] History of Social function 2025-02-10 00:00:00 2025-02-10 00:00:00 [facility] Exposure to SARS-CoV-2 (event) 2022-11-20 00:00:00 2022-11-30 10:19:00 Not sure [facility] Smoking Status Start Date Stop Date Source Never smoked tobacco [facility] Former Smoker 2024-05-01 00:00:00 2024-05-01 00:00:00 [facility] Tobacco smoking consumption unknown [facility] Current Smoker 2021-09-10 00:00:00 [facility] Medications Ordered Medication Name Filled Medication Name Start Date Stop Date Current Medication? Ordering Clinician Indication Dosage Frequency Signature (SIG) Comments Components Source Losartan Potassium 25 MG Losartan Potassium 25 MG -31 00:00: 00 No 1{table t} QD Losartan Potassium 25 MG valACYclovi r (VALTREX) 1 gram tablet 11-30 00:00: 00 12-08 05:59 :00 No [id number] 1g Take 1 tablet by mouth in the morning and 1 tablet in the evening. Do all this for 7 days. [facility] gabapentin 100 mg capsule 11-30 00:00: 00 12-08 05:59 :00 No [id number] 100mg Take 1 capsule by mouth in the morning and 1 capsule at noon and 1 capsule in the evening. Do all this for 7 days. [facility] predniSONE 20 mg tablet 11-30 00:00: 00 12-06 05:59 :00 No [id number] 40mg Take 2 tablets by mouth in the morning for 5 days. [facility] Immunizations Ordered Immunization Name Filled Immunization Name Date Status Comments Source SARS-COV-2 COVID-19 PFIZER VACCINE 2021-03-20 00:00:00 Completed [facility] SARS-COV-2 COVID-19 PFIZER VACCINE 2021-03-20 00:00:00 Completed [facility] SARS-COV-2 COVID-19 PFIZER VACCINE 2021-03-20 00:00:00 Completed [facility] SARS-COV-2 COVID-19 PFIZER VACCINE 2021-03-20 00:00:00 Completed [facility] SARS-COV-2 COVID-19 PFIZER VACCINE 2021-01-14 00:00:00 Completed [facility] SARS-COV-2 COVID-19 PFIZER VACCINE 2021-01-14 00:00:00 Completed [facility] SARS-COV-2 COVID-19 PFIZER VACCINE 2021-01-14 00:00:00 Completed [facility] SARS-COV-2 COVID-19 PFIZER VACCINE 2021-01-14 00:00:00 Completed [facility] SARS-COV-2 COVID-19 PFIZER VACCINE 2021-01-14 00:00:00 Completed [facility] SARS-COV-2 COVID-19 PFIZER VACCINE 2021-01-14 00:00:00 Completed [facility] Vital Signs Vital Name Observation Time Observation Value Tiki molina Systolic blood pressure 2025-02-10 19:33:00 136 mm[Hg] [facility] Diastolic blood pressure 2025-02-10 19:33:00 86 mm[Hg] [facility] Heart rate 2025-02-10 19:33:00 85 /min [facility] Body temperature 2025-02-10 19:33:00 36.61 Danii [facility] Body height 2025-02-10 19:33:00 162.6 cm [facility] Body weight 2025-02-10 19:33:00 127.007 kg [facility] BMI 2025-02-10 19:33:00 48.06 kg/m2 [facility] Oxygen saturation in Arterial blood by Pulse oximetry 2025-02-10 19:33:00 96 /min [facility] height 2024-05-01 11:20:00 64.0 [in_i] Comm on [facility] weight 2024-05-01 11:20:00 265 [lb_av] Comm on [facility] bmi 2024-05-01 11:20:00 45.48 kg/m2 Comm on [facility] oximetry 2024-04-03 08:40:00 99 % Commo n [facility] respiratory rate 2024-04-03 08:40:00 16 /min [facility] blood pressure systolic 2024-04-03 08:40:00 145 mm[Hg] [facility] blood pressure diastolic 2024-04-03 08:40:00 82 mm[Hg] [facility] height 2024-04-03 08:40:00 64.0 [in_i] Comm on [facility] weight 2024-04-03 08:40:00 267.2 [lb_av] Co mmon [facility] temperature 2024-04-03 08:40:00 97.3 [degF] Com mon [facility] bmi 2024-04-03 08:40:00 45.86 kg/m2 [facility] Systolic blood pressure 2022-11-30 15:38:00 143 mm[Hg] [facility] Diastolic blood pressure 2022-11-30 15:38:00 82 mm[Hg] [facility] Heart rate 2022-11-30 15:35:00 78 /min [facility] Body temperature 2022-11-30 15:35:00 36.94 Danii [facility] Respiratory rate 2022-11-30 15:35:00 16 /min [facility] Body height 2022-11-30 15:35:00 162.6 cm [facility] Body weight 2022-11-30 15:35:00 131.09 kg [facility] BMI 2022-11-30 15:35:00 49.61 kg/m2 [facility] Oxygen saturation in Arterial blood by Pulse oximetry 2022-11-30 15:35:00 99 /min [facility] height 2021-09-11 14:40:00 64.0 [in_i] Comm on [facility] weight 2021-09-11 14:40:00 287 [lb_av] Comm on [facility] temperature 2021-09-11 14:40:00 97.9 [degF] Com mon [facility] bmi 2021-09-11 14:40:00 49.26 kg/m2 Comm on [facility] oximetry 2021-09-11 14:40:00 98 % Commo n [facility] respiratory rate 2021-09-11 14:40:00 18 /min [facility] blood pressure systolic 2021-09-11 14:40:00 132 mm[Hg] [facility] blood pressure diastolic 2021-09-11 14:40:00 78 mm[Hg] [facility] height 2020-09-12 15:20:00 64.0 [in_i] Comm on [facility] weight 2020-09-12 15:20:00 278 [lb_av] Comm on [facility] temperature 2020-09-12 15:20:00 98.63 [degF] Co mmon [facility] bmi 2020-09-12 15:20:00 47.71 kg/m2 Comm on [facility] oximetry 2020-09-12 15:20:00 97 % Commo n [facility] respiratory rate 2020-09-12 15:20:00 16 /min [facility] blood pressure systolic 2020-09-12 15:20:00 137 mm[Hg] [facility] blood pressure diastolic 2020-09-12 15:20:00 76 mm[Hg] [facility] Procedures Procedure Date / Time Performed Performing Clinicia n Source ASSIGNMENT OF BENEFITS 2022-11-30 15:18:22 Docto r Unassigned, Conception [facility] COVID-19 (MOLECULAR TESTING NUCLEIC ACID AMPLIFICATION) 2021-01-30 20:50:00 Lacey Melendez [facility] Encounters Start Date/Time End Date/Time Encounter Type Admission Type Attending [facility] Care Facility Care Department Encounter ID Source 2024-04-30 13:09:00 Outpatient [place] mandel [facility] [id number] [facility] 2024-04-29 07:53:00 Outpatient DeoFawn [facility] [id number] [facility] 2024-04-02 07:53:00 Outpatient Deo Fawn [facility] [id number] [facility] 2024-03-13 08:21:00 Outpatient DeoFawn [facility] [id number] [facility] 2024-02-18 08:27:00 Outpatient Deo Fawn [facility] [id number] [facility] 2024-02-17 08:06:00 Outpatient Fawn Desouza [facility] [id number] [facility] 2022-09-05 16:32:01 Outpatient Fawn Desouza [facility] 2021-11-29 11:02:53 Outpatient Fawn Desouza [facility] [id number] [facility] 2025-02-10 14:30:00 2025-02-10 16:37:26 Outpatient R LELA CAPUTO [facility] [id number] [facility] 2025-02-10 14:30:00 2025-02-10 16:37:26 [facility] [id number] [facility] 2025-01-20 10:20:00 2025-01-20 10:23:51 Outpatient ELANA SUMMERS [facility] [id number] [facility] 2024-05-01 00:00:00 2024-05-01 00:00:00 OFFICE VISIT ESTAB PT LEVEL 3 [facility] [id number] [facility] 2024-04-03 00:00:00 2024-04-03 00:00:00 OFFICE VISIT ESTAB PT LEVEL 4 [facility] [id number] [facility] 2024-02-26 00:00:00 2024-02-26 00:00:00 (TEL) [facility]C [facility] [id number] [facility] 2024-02-26 00:00:00 2024-02-26 00:00:00 (TEL) [facility] [id number] [facility] 2024-02-25 00:00:00 2024-02-25 00:00:00 (TEL) [facility] [id number] [facility] 2023-09-01 00:00:00 2023-09-01 00:00:00 Outpatient [email or web address]_Ka diyala_S [facility] [id number] [facility] 2022-11-30 09:20:00 2022-11-30 10:20:06 Outpatient CARLEE THAKKAR [facility] [id number] [facility] 2022-11-30 09:20:00 2022-11-30 10:20:06 Urgent Care Carlee Figueroa Unknown, Attending [facility] [id number] [facility] 2022-11-30 00:00:00 2022-11-30 00:00:00 Orders Only Doctor Unassigned, Conception [facility] [id number] [id number] [id number] [facility] 2022-01-08 00:00:00 2022-01-08 00:00:00 Letter (Out) Sandra Anderson [facility] 1..114 350.1.13.10 4.2.7.2.686 [id number] [facility] 2021-09-11 00:00:00 2021-09-11 00:00:00 PREV VISIT EST AGE 40-64 STLMLC [facility] [id number] [facility] 2021-03-20 13:50:00 2021-03-20 13:50:00 Outpatient EZRA MONTERO [facility] [id number] [facility] 2021-02-04 11:35:00 2021-02-04 11:35:00 Outpatient EZRA MARIE [facility] [id number] [facility] 2021-01-31 00:00:00 2021-01-31 00:00:00 Telephone Lab, Adc Fam Anne Marie Evelina [facility] Office [facility] ..840.114 [id number] [id number] [id number] [facility] 2021-01-30 16:00:00 2021-01-30 16:00:00 Outpatient R ESTHER PEACE [facility] [id number] [facility] 2021-01-30 15:36:02 2021-01-30 15:59:21 Laboratory Only Lab, Adc Fam PoEsther Shaikh [facility] ..840.114 [id number] [id number] [id number] [facility] 2020-09-12 00:00:00 2020-09-12 00:00:00 PREV VISIT EST AGE 40-64 STLMLC STL[facility]C [id number] [facility] 2019-11-27 08:00:00 2019-11-27 08:00:[address] [facility] [id number] [facility] 2019-09-15 14:40:00 2019-09-15 14:40:00 Outpatient [facility] [id number] [facility] 2018-05-23 09:30:00 2018-05-23 09:30:00 Outpatient [facility] [id number] [facility] Results Test Description Test Time Test Comments Results Result Co mments Source [facility]
[2025-02-19] MEDS ORDERED: AMLODIPINE 10 MG TAB ONE (05:43)
[2025-02-19] MEDS ORDERED: ONDANSETRON 4 MG/2 ML VIAL ONE ×2 (05:43→06:51)
[2025-02-19] MEDS ORDERED: NA CHLORIDE 0.9% 500 ML ONE (05:43)
[2025-02-19 05:59] LABS: Absolute Basophils 0.1 K/uL (0-0.5); Absolute Eosinophils 0.1 K/uL (0-0.5); Absolute Lymphocytes (CBC) 1.3 K/uL (0.7-4.9); Absolute Monocytes 0.4 K/uL (0.1-1.3); Absolute Neutrophil 7.5 K/uL (1.8-8.0); Basophils % 0.6 % (0-1.3); Eosinophils % 1.1 % (0-4.4); Hemoglobin 14.8 g/dL (12.0-15.0); Lymphocytes % 13.9 % (15.3-44.8); MCH 32.1 pg (27.0-35.0); MCHC 35.2 g/dL (32.0-36.0); MCV 91.3 fL (80-100); MPV 8.4 fL (7.6-11.3); Monocytes % 4.1 % (3.3-12.3); Neutrophils % 80.3 % (41.7-73.7); Platelets 285 thou/uL (152-406)
--- NOTE | 2025-02-19 05:59 | RAD REPORT ---
EXAM: Chest Single View HISTORY: 44 years Female COUGH COMPARISON: 08/06/2016 FINDINGS: LUNGS/PLEURA: The lungs are clear. No pleural effusions or pneumothorax. No pulmonary edema. CARDIAC/MEDIASTINUM: Magnified by portable technique, but probably within normal limits. UPPER ABDOMEN: No significant abnormality. BONES: No acute abnormality. LINES/TUBES/OTHER: N/A IMPRESSION: No evidence of acute cardiopulmonary disease.
--- NOTE | 2025-02-19 06:07 | RAD REPORT ---
EXAMINATION: Head Brain Wo Cont CLINICAL INDICATION: Female, 44 years old.HEADACHE TECHNIQUE: Axial CT images from the skull base to the vertex without intravenous contrast. Coronal an d sagittal reformatted images were created from the data set. One or more of the following dose reduction techniques were used: Automated exposure control, adjustment of the mA and/or kV according to patient size, and/or iterative reconstruction. Unless otherwise specified, incidental findings do not require dedicated imaging follow-up. [id number]. COMPARISON: No prior exam. FINDINGS: INTRACRANIAL: No acute intracranial hemorrhage. No hydrocephalus. No mass effect or midline shift. No significant white matter disease. VASCULATURE: No visualized abnormalities in the arteries or dural venous sinuses. SCALP/SKULL: No calvarial fracture identified. No acute soft tissue abnormality. SINUSES: The visualized paranasal sinuses are mostly clear. No significant mastoid fluid. IMPRESSION: No acute intracranial abnormality.
[2025-02-19 06:14] LABS: ALT/SGPT 29 U/L (13-56); AST/SGOT 12 U/L (15-37); Albumin 3.5 g/dL (3.4-5.0); Albumin/Globulin Ratio 0.8 (1.1-1.8); Alkaline Phosphatase 64 U/L (45-117); Anion Gap 8.8 mEq/L (5.0-15.0); BUN Blood Urea Nitrogen 12 mg/dL (7-18); Bicarbonate 26 mEq/L (21-32); Bilirubin Total 0.3 mg/dL (0.2-1.0); Globulin 4.3 g/dL (2.3-3.5); Glomerular Filtration Rate 96 ml/min (=/>90); Glucose Level 112 mg/dL (74-106); Lipase 24 U/L (13-75); NT PRO-BNP 71 pg/mL (<125); Potassium 3.8 mEq/L (3.5-5.1); Protein, Total 7.8 g/dL (6.4-8.2); Sodium Level 138 mEq/L (136-145); Troponin High Sensitivity 47.6 pg/mL (<58.9)
[2025-02-19] MEDS ORDERED: ASPIRIN 81 MG CHEWABLE TABLET ONE ×2 (06:24→06:52)
[2025-02-19 06:34] LABS: Bilirubin Direct < 0.2 mg/dL (0-0.2); Bilirubin Indirect, Calculated 0.1 mg/dL (0.2-0.8)
--- NOTE | 2025-02-19 06:47 | ER ---
Nurse's Notes [facility] Name: Carleen Navarro Age: 44 yrs Sex: Female : 1980 Arrival Date: 02/19/2025 Time: 04:27 Bed 23 Private MD: Diagnosis: Chest pain, unspecified;Unstable angina;Essential (primary) hypertension;Obesity, unspecified;Nausea;Dizziness and giddiness Presentation: 02/19 05:34 Chief complaint: Patient states: PT STATES SHE WOKE UP WITH A HEADACHE, NAUSEA, AND br2 INTERMITTENT CHEST FLUTTER.... Coronavirus screen: Client denies travel out of the [place] in the last 14 days. Ebola Screen: Patient denies exposure to infectious person. Initial Sepsis Screen: Does the patient meet any 2 criteria? No. Patient's initial sepsis screen is negative. Does the patient have a suspected source of infection? No. Patient's initial sepsis screen is negative. Risk Assessment: Do you want to hurt yourself or someone else?. Onset of symptoms was February 19, 2025 at 00:00. 05:34 Method Of Arrival: Ambulatory br2 05:34 Acuity: CRISTI 3 br2 Triage Assessment: 05:35 General: Appears in no apparent distress. comfortable, Behavior is calm, cooperative. br2 Pain: Denies pain. EENT: No signs and/or symptoms were reported regarding the EENT system. Neuro: Hood Agitation-Sedation Scale (RASS): 0 - Alert and Calm Level of Consciousness is awake, alert, obeys commands, Oriented to person, place, time, situation, Reports headache. Cardiovascular: Capillary refill Rhythm is sinus rhythm. Respiratory: Airway is patent Respiratory effort is even, unlabored, Respiratory pattern is regular, symmetrical. GI: Reports nausea. : No signs and/or symptoms were reported regarding the genitourinary system. Derm: No signs and/or symptoms reported regarding the dermatologic system. Musculoskeletal: Circulation, motion, and sensation intact. Capillary refill Range of motion: intact in all extremities. Historical: - Allergies: 05:35 No Known Allergies; br2 - Home Meds: 05:35 None [Active]; br2 - Immunization history:: Adult Immunizations up to date. - Infectious Disease History:: Denies. - Social history:: Smoking status: Patient/guardian denies using tobacco, Patient uses alcohol, on a daily basis. Patient/guardian denies using street drugs. Screenin:10 [facility] ED Fall Risk Assessment (Adult) History of falling in the last 3 months, rg5 including since admission No falls in past 3 months (0 pts) Confusion or Disorientation No (0 pts) Intoxicated or Sedated No (0 pts) Impaired Gait No (0 pts) Mobility Assist Device Used No (0 pt) Altered Elimination No (0 pt) Score/Fall Risk Level 0 - 2 = Low Risk Oriented to surroundings, Provided non-skid footwear. Abuse screen: Denies threats or abuse. Nutritional screening: No deficits noted. Tuberculosis screening: No symptoms or risk factors identified. Assessment: 06:10 General: Appears in no apparent distress. comfortable, Behavior is calm, cooperative, rg5 appropriate for age. Pain: Complains of pain in head. Neuro: Level of Consciousness is awake, alert, Reports dizziness, headache. Cardiovascular: Patient's skin is warm and dry. Respiratory: Airway is patent Trachea midline Respiratory effort is even, unlabored. GI: Abdomen is round obese. : No deficits noted. EENT: No deficits noted. Derm: Skin is intact. Musculoskeletal: Circulation, motion, and sensation intact. Range of motion: intact in all extremities. 08:15 General: Appears in no apparent distress. comfortable, well groomed, well developed, kc6 Behavior is calm, cooperative, appropriate for age. Pain: Complains of pain in face and chest. Neuro: Level of Consciousness is awake, alert, obeys commands, Oriented to person, place, time, situation, Appropriate for age Reports dizziness, headache. Cardiovascular: Reports lightheadedness, palpitations, Heart tones S1 S2 present Capillary refill < 3 seconds Rhythm is sinus rhythm. Respiratory: Airway is patent Trachea midline Respiratory effort is even, unlabored, Respiratory pattern is regular, symmetrical. GI: Abdomen is round non-distended, obese, Reports nausea, Patient currently denies abdominal pain, diarrhea, vomiting. : No signs and/or symptoms were reported regarding the genitourinary system. EENT: No signs and/or symptoms were reported regarding the EENT system. Derm: No signs and/or symptoms reported regarding the dermatologic system. Skin is intact, is healthy with good turgor, Skin is pink, warm \T\ dry. Musculoskeletal: No signs and/or symptoms reported regarding the musculoskeletal system. Circulation, motion, and sensation intact. Range of motion: intact in all extremities. 09:26 Reassessment: Patient appears in no apparent distress at this time. No changes from kc6 previously documented assessment. Patient and/or family updated on plan of care and expected duration. Pain level reassessed. Patient is alert, oriented x 3, equal unlabored respirations, skin warm/dry/pink. Vital Signs: 05:34 BP 187 / 91; Pulse 74; Resp 18; Temp 97.4(TE); Pulse Ox 98% on R/A; Weight 127.01 kg; br2 Height 5 ft. 4 in. ; Pain 0/10; 06:20 BP 160 / 109; Pulse 79; Resp 18; Pulse Ox 97% ; rg5 07:16 BP 156 / 91; Pulse 69; Resp 18; rg5 08:15 BP 157 / 89; Pulse 67; Resp 16 S; Pulse Ox 95% on R/A; kc6 05:34 Body Mass Index 48.06 (127.01 kg, 162.56 cm) br2 05:34 Pain Scale: Adult br2 ED Course: 04:32 Patient arrived in ED. gm2 04:46 Kevan Will MD is Attending Physician. frank 05:22 Basic Metabolic Panel Sent. kmf 05:22 CBC with Diff Sent. kmf 05:22 LFT's Sent. kmf 05:22 Magnesium Sent. kmf 05:22 NT PRO-BNP Sent. kmf 05:22 PT-INR Sent. kmf 05:22 Troponin HS Sent. kmf 05:22 Initial lab(s) drawn, by il, sent to lab. kmf 05:22 Inserted saline lock: 22 gauge in left antecubital area, using aseptic technique. Blood kmf collected. Flushed with 10 mL NS. 05:22 EKG done, by ED staff, reviewed by Kevan Will MD. kmf 05:31 XRAY Chest (1 view) In Process Unspecified. EDMS 05:34 Shelly Millard, PHILOMENA is Primary Nurse. br2 05:35 Triage completed. br2 05:35 Arm band placed on. br2 05:49 Basic Metabolic Panel Sent. br2 05:49 CBC with Diff Sent. br2 05:49 LFT's Sent. br2 05:49 Magnesium Sent. br2 05:49 NT PRO-BNP Sent. br2 05:50 Troponin HS Sent. br2 05:50 TSH Sent. br2 05:50 Lipase Sent. br2 06:04 CT Head Brain wo Cont In Process Unspecified. EDMS 06:10 No provider procedures requiring assistance completed. rg5 06:10 Patient has correct armband on for positive identification. Door closed. Noise rg5 minimized. 07:00 Report received from PHILOMENA Luna. kc6 07:00 Patient has correct armband on for positive identification. Bed in low position. Call kc6 light in reach. Side rails up X2. Adult w/ patient. monitor car operator on. Pulse ox on. NIBP on. Door closed. Noise minimized. Lights dimmed. Warm blanket given. Pillow given. Verbal reassurance given. 08:23 Pt accepted as a transfer to [facility]; Doc to Doc and Nurse to Nurse em1 reporting has been onducted; transportation arranged through [facility] with an ETA to our location of approximately 30 minutes. 09:27 Patient transferred, IV remains in place. kc6 Administered Medications: 05:49 Drug: NS 0.9% IV 500 ml 500 ml IV at 1 bolus once; to be given as a bolus over 30 br2 minutes Volume: 500 ml; Route: IV; Rate: 1 bolus; Site: left antecubital; 08:13 Follow up: Response: No adverse reaction; IV Status: Completed infusion; IV Intake: kc6 500ml 05:49 Drug: Ondansetron IVP 4 mg IVP once; over 2 minutes Route: IVP; Site: left antecubital; br2 06:23 Follow up: Response: No adverse reaction rg5 05:49 Drug: Norvasc PO 10 mg PO once Route: PO; br2 06:23 Follow up: Response: No adverse reaction; Blood sugar is lowered rg5 06:40 Not Given (Duplicate Order): aspirinchewable tablet 81 mg PO once frank 06:50 Drug: Clopidogrel PO 300 mg PO once Route: PO; rg5 08:14 Follow up: Response: No adverse reaction kc6 06:50 Drug: Aspirin PO Chewable Tablet 324 mg PO once; 81 mg tablets x 4 Route: PO; rg5 08:14 Follow up: Response: No adverse reaction kc6 06:50 Drug: Metoprolol PO 50 mg PO once Route: PO; rg5 08:14 Follow up: Response: No adverse reaction kc6 07:05 Drug: Metoprolol IVP 2.5 mg IVP once; Hold for SBP <100 or HR <60. Route: IVP; Site: rg5 left antecubital; 09:26 Follow up: Response: No adverse reaction; Blood pressure is lowered kc6 07:12 Drug: Atorvastatin PO 40 mg PO once Route: PO; rg5 08:13 Follow up: Response: No adverse reaction kc6 07:13 Drug: Enoxaparin Sub-Q 1 mg/kg Sub-Q once; 130 MG Route: Sub-Q; Site: right lower rg5 abdomen; 08:14 Follow up: Response: No adverse reaction kc6 07:13 Drug: morphine IVP or IV 4 mg IVP once over 4 mins Route: IVP; Infused Over: 4 mins; rg5 Site: left antecubital; 08:13 Follow up: Response: No adverse reaction; Pain is decreased; RASS: Alert and Calm (0) kc6 07:13 Drug: Ondansetron IVP 4 mg IVP once; over 2 minutes Route: IVP; Site: left antecubital; rg5 08:13 Follow up: Response: No adverse reaction kc6 07:55 Drug: Famotidine IVP 20 mg IVP once; dilute with 10 mL 0.9% NaCl; give over 2 minutes kc6 Route: IVP; Site: left antecubital; 08:14 Follow up: Response: No adverse reaction kc6 09:26 Not Given (Hemodynamic Parameters): metoprolol2.5 mg IVP once; Hold for SBP <100 or HR kc6 <60. 09:26 Not Given (Hemodynamic Parameters): metoprolol2.5 mg IVP once; Hold for SBP <100 or HR kc6 <60. Medication: 06:10 VIS not applicable for this client. rg5 Intake: 08:13 IV: 500ml; Total: 500ml. kc6 Outcome: 06:46 ER care complete, transfer ordered by MD. marie 09:27 Transferred by [facility] em[facility] to [facility], [facility], Transfer form kc6 completed. 09:27 Condition: good 09:27 Instructed on the need for transfer, 09:27 Patient left the ED. kc6 Signatures: Dispatcher [employer] EDKevan Kumari MD MD cha Martinez, Eric em1 Jeanette Mcmahon RN RN kc6 Makayla Estrella 2 Rhea Mercedes [facility] Harshad Ramos RN RN rg5 Shelly Millard RN RN br2 Corrections: (The following items were deleted from the chart) 05:36 05:35 PMHx: ectopic ; br2 br2 05:51 05:34 127.01 kg; Height 5 ft. 4 in.; BMI: 48.0; Pain 0/10, Adult; br2 br2
--- NOTE | 2025-02-19 06:47 | EDPHYS ---
Physician Documentation [facility] Name: Carleen Navarro Age: 44 yrs Sex: Female : 1980 Arrival Date: 02/19/2025 Time: 04:27 Bed 23 Private MD: ED Physician Kevan Will HPI: 02/19 05:43 This 44 yrs old Female presents to ER via Ambulatory with complaints of High frank Blood Pressure, Dizziness, Nausea, Headache. 05:43 The patient has elevated blood pressure and discovered this at home. Modifying factors: frank The symptoms are aggravated by activity, The symptoms are alleviated by remaining still. Associated signs and symptoms: Pertinent positives: dizziness, headache, lightheadedness. Severity of symptoms: At its worst the blood pressure was moderate, in the emergency department the blood pressure is unchanged. The patient has experienced similar episodes in the past, a few times. Historical: - Allergies: 05:35 No Known Allergies; br2 - Home Meds: 05:35 None [Active]; br2 - Immunization history:: Adult Immunizations up to date. - Infectious Disease History:: Denies. - Social history:: Smoking status: Patient/guardian denies using tobacco, Patient uses alcohol, on a daily basis. Patient/guardian denies using street drugs. ROS: 05:45 Constitutional: Negative for fever, chills, and weight loss, Eyes: Negative for injury, frank pain, redness, and discharge, ENT: Negative for injury, pain, and discharge, Neck: Negative for injury, pain, and swelling, Cardiovascular: Negative for chest pain, palpitations, and edema, Respiratory: Negative for shortness of breath, cough, wheezing, and pleuritic chest pain, Abdomen/GI: Negative for abdominal pain, nausea, vomiting, diarrhea, and constipation, Back: Negative for injury and pain, : Negative for injury, bleeding, discharge, and swelling, MS/Extremity: Negative for injury and deformity, Skin: Negative for injury, rash, and discoloration, Neuro: Negative for headache, weakness, numbness, tingling, and seizure, Psych: Negative for depression, anxiety, suicide ideation, homicidal ideation, and hallucinations, Allergy/Immunology: Negative for hives, rash, and allergies, Endocrine: Negative for neck swelling, polydipsia, polyuria, polyphagia, and marked weight changes, Hematologic/Lymphatic: Negative for swollen nodes, abnormal bleeding, and unusual bruising, Exam: 05:45 Constitutional: This is a well developed, well nourished patient who is awake, alert, frank and in no acute distress. Head/Face: Normocephalic, atraumatic. Eyes: Pupils equal round and reactive to light, extra-ocular motions intact. Lids and lashes normal. Conjunctiva and sclera are non-icteric and not injected. Cornea within normal limits. Periorbital areas with no swelling, redness, or edema. ENT: Nares patent. No nasal discharge, no septal abnormalities noted. Tympanic membranes are normal and external auditory canals are clear. Oropharynx with no redness, swelling, or masses, exudates, or evidence of obstruction, uvula midline. Mucous membranes moist. Neck: Trachea midline, no thyromegaly or masses palpated, and no cervical lymphadenopathy. Supple, full range of motion without nuchal rigidity, or vertebral point tenderness. No Meningismus. Chest/axilla: Normal chest wall appearance and motion. Nontender with no deformity. No lesions are appreciated. Cardiovascular: Regular rate and rhythm with a normal S1 and S2. No gallops, murmurs, or rubs. Normal PMI, no JVD. No pulse deficits. Respiratory: Lungs have equal breath sounds bilaterally, clear to auscultation and percussion. No rales, rhonchi or wheezes noted. No increased work of breathing, no retractions or nasal flaring. Abdomen/GI: Soft, non-tender, with normal bowel sounds. No distension or tympany. No guarding or rebound. No evidence of tenderness throughout. Back: No spinal tenderness. No costovertebral tenderness. Full range of motion. Female : Normal external genitalia. Skin: Warm, dry with normal turgor. Normal color with no rashes, no lesions, and no evidence of cellulitis. MS/ Extremity: Pulses equal, no cyanosis. Neurovascular intact. Full, normal range of motion., bilateral aka Neuro: Awake and alert, GCS 15, oriented to person, place, time, and situation. Cranial nerves II-XII grossly intact. Motor strength 5/5 in all extremities. Sensory grossly intact. Cerebellar exam normal. Normal gait. Psych: Awake, alert, with orientation to person, place and time. Behavior, mood, and affect are within normal limits. 05:45 ECG was reviewed by the Attending Physician. 05:45 Musculoskeletal/extremity: ROM: no acute changes, intact in all extremities, full active range of motion, Circulation is intact in all extremities. Sensation intact. Compartment Syndrome exam of affected extremity: is normal. no pain, no numbness, no tingling, no sensation deficit, no palor, no weak pulses, Joints: All joints appear normal with full range of motion. Weight bearing: DVT Exam: no pain, no swelling, no tenderness, negative Homans' sign noted on exam, no appreciated bluish discoloration, no erythema, no increased warmth, Vital Signs: 05:34 BP 187 / 91; Pulse 74; Resp 18; Temp 97.4(TE); Pulse Ox 98% on R/A; Weight 127.01 kg; br2 Height 5 ft. 4 in. ; Pain 0/10; 06:20 BP 160 / 109; Pulse 79; Resp 18; Pulse Ox 97% ; rg5 07:16 BP 156 / 91; Pulse 69; Resp 18; rg5 08:15 BP 157 / 89; Pulse 67; Resp 16 S; Pulse Ox 95% on R/A; kc6 05:34 Body Mass Index 48.06 (127.01 kg, 162.56 cm) br2 05:34 Pain Scale: Adult br2 MDM: 04:46 Medical Screening Exam initiated frank 05:49 Differential diagnosis: Nonspecific abd pain, gastritis, cholecystitis, pancreatitis, frank appendicitis, diverticulitis, viral gastroenteritis, gastroenteritis, hypertensive crisis, Malignant HTN, CVA, intracerebral hemorrhage. Differential diagnosis: cardiac arrhythmia, generalized weakness, idiopathic dizziness. Data reviewed: vital signs, nurses notes, lab test result(s), EKG, radiologic studies, CT scan, plain films. Consideration of Admission/Observation Escalation of care including admission/observation considered. I considered the following discharge prescriptions or medication management in the emergency department Medications were administered in the Emergency Department. See MAR. Independent interpretation of the following test(s) in the Emergency Department EKG: See my EKG interpretation above. Test considered but Not performed: Ultrasound NO 2 D ECHO. Historians other than the Patient: Spouse/Significant Other: WELL INFORMED. Care significantly affected by the following chronic conditions: Hypertension, Obesity. Counseling: I had a detailed discussion with the patient and/or guardian regarding the historical points, exam findings, and any diagnostic results supporting the discharge/admit diagnosis, the presence of at least one elevated blood pressure reading (>120/80) during this emergency department visit, lab results, radiology results, the need for outpatient follow up, for definitive care, a ordnance engineer, a family practitioner. 02/19 04:50 Order name: Basic Metabolic Panel; Complete Time: 06:39 frank 02/19 04:50 Order name: CBC with Diff; Complete Time: 06:34 02/19 04:50 Order name: LFT's; Complete Time: 06:39 02/19 04:50 Order name: Magnesium; Complete Time: 06:39 02/19 04:50 Order name: NT PRO-BNP; Complete Time: 06:39 02/19 04:50 Order name: Troponin HS; Complete Time: 06:39 02/19 04:50 Order name: Lipase; Complete Time: 06:39 02/19 05:29 Order name: TSH; Complete Time: 06:34 frank 02/19 06:42 Order name: Lipid Profile 02/19 04:50 Order name: XRAY Chest (1 view); Complete Time: 06:34 02/19 05:15 Order name: CT Head Brain wo Cont; Complete Time: 06:34 frank 02/19 04:50 Order name: Cardiac monitoring; Complete Time: 06:22 02/19 04:50 Order name: EKG - Nurse/Tech; Complete Time: 05:36 02/19 04:50 Order name: IV Saline Lock; Complete Time: 05:49 frank 02/19 04:50 Order name: Labs collected and sent; Complete Time: 05:49 frank 02/19 04:50 Order name: O2 Per Protocol; Complete Time: 06:23 02/19 04:50 Order name: O2 Sat Monitoring; Complete Time: 06:23 02/19 06:42 Order name: IV Saline Lock - Large Bore; Complete Time: 07:44 [facility] EC:45 Rate is 76 beats/min. Rhythm is regular. QRS [place] is Normal. [place] interval is normal. QRS frank interval is normal. QT interval is normal. No Q waves. T waves are Normal. No ST changes noted. Clinical impression: Normal ECG and No evidence of ischemia. Interpreted by me. Reviewed by me. Administered Medications: 05:49 Drug: NS 0.9% IV 500 ml 500 ml IV at 1 bolus once; to be given as a bolus over 30 br2 minutes Volume: 500 ml; Route: IV; Rate: 1 bolus; Site: left antecubital; 08:13 Follow up: Response: No adverse reaction; IV Status: Completed infusion; IV Intake: kc6 500ml 05:49 Drug: Ondansetron IVP 4 mg IVP once; over 2 minutes Route: IVP; Site: left antecubital; br2 06:23 Follow up: Response: No adverse reaction rg5 05:49 Drug: Norvasc PO 10 mg PO once Route: PO; br2 06:23 Follow up: Response: No adverse reaction; Blood sugar is lowered rg5 06:40 Not Given (Duplicate Order): aspirinchewable tablet 81 mg PO once frank 06:50 Drug: Clopidogrel PO 300 mg PO once Route: PO; rg5 08:14 Follow up: Response: No adverse reaction kc6 06:50 Drug: Aspirin PO Chewable Tablet 324 mg PO once; 81 mg tablets x 4 Route: PO; rg5 08:14 Follow up: Response: No adverse reaction kc6 06:50 Drug: Metoprolol PO 50 mg PO once Route: PO; rg5 08:14 Follow up: Response: No adverse reaction kc6 07:05 Drug: Metoprolol IVP 2.5 mg IVP once; Hold for SBP <100 or HR <60. Route: IVP; Site: rg5 left antecubital; 09:26 Follow up: Response: No adverse reaction; Blood pressure is lowered kc6 07:12 Drug: Atorvastatin PO 40 mg PO once Route: PO; rg5 08:13 Follow up: Response: No adverse reaction kc6 07:13 Drug: Enoxaparin Sub-Q 1 mg/kg Sub-Q once; 130 MG Route: Sub-Q; Site: right lower rg5 abdomen; 08:14 Follow up: Response: No adverse reaction kc6 07:13 Drug: morphine IVP or IV 4 mg IVP once over 4 mins Route: IVP; Infused Over: 4 mins; rg5 Site: left antecubital; 08:13 Follow up: Response: No adverse reaction; Pain is decreased; RASS: Alert and Calm (0) kc6 07:13 Drug: Ondansetron IVP 4 mg IVP once; over 2 minutes Route: IVP; Site: left antecubital; rg5 08:13 Follow up: Response: No adverse reaction kc6 07:55 Drug: Famotidine IVP 20 mg IVP once; dilute with 10 mL 0.9% NaCl; give over 2 minutes kc6 Route: IVP; Site: left antecubital; 08:14 Follow up: Response: No adverse reaction kc6 09:26 Not Given (Hemodynamic Parameters): metoprolol2.5 mg IVP once; Hold for SBP <100 or HR kc6 <60. 09:26 Not Given (Hemodynamic Parameters): metoprolol2.5 mg IVP once; Hold for SBP <100 or HR kc6 <60. Disposition Summary: 02/19/25 06:46 Transfer Ordered Notes: Transfer Location: Other [facility] frank Reason: Higher level of care frank Condition: Fair frank Problem: new frank Symptoms: have improved frank Accepting Physician: DAVY PICKERING [facility](02/19/25 09:27) kc6 Diagnosis - Chest pain, unspecified frank - Unstable angina frank - Essential (primary) hypertension frank - Obesity, unspecified frank - Nausea frank - Dizziness and giddiness frank Discharge Instructions: - Discharge Summary Sheet frank - Dizziness frank - Hypertension, Adult frank - Nausea, Adult frank - Palpitations frank - Nausea and Vomiting, Adult, [id number] frank - Hypertension, Adult, [id number] frank - How to Take Your Blood Pressure, [id number] frank - Aspirin and Your Heart frank - Palpitations, [id number] frank - Managing Your Hypertension frank Forms: - Medication Reconciliation Form frank - SBAR form frank Prescriptions: - ondansetron 4 mg Oral Tablet,disintegrating - take 1 tablet ORAL route every 6-8 hours for 5 days PRN; 20 tablet; Refills: 0, frank Product Selection Permitted - Norvasc 5 mg Oral Tablet - take 1 tablet ORAL route once daily; 20 tablet; Refills: 0, Product Selection frank Permitted Critical care time excluding procedures: 06:47 Critical care time: Bedside Care: 30 minutes, Consultation: 15 minutes, Family frank Intervention: 10 minutes. Total time: 55 minutes Signatures: Dispatcher [employer] Kevan Green MD MD cha Campbell, Kaitlyn RN RN kc6 Harshad Ramos RN RN rg5 Shelly Millard RN RN br2 Corrections: (The following items were deleted from the chart) 04:50 04:50 BASIC METABOLIC PANEL+C.LAB.BRZ ordered. EDMS EDMS 04:50 04:50 CBC+H.LAB.BRZ ordered. EDMS EDMS 04:50 04:50 HEPATIC FUNCTION+C.LAB.BRZ ordered. EDMS EDMS 04:50 04:50 MAGNESIUM+C.LAB.BRZ ordered. EDMS EDMS 04:50 04:50 PROBNP+C.LAB.BRZ ordered. EDMS EDMS 04:50 04:50 PROTIME (+INR)+COAG.LAB.BRZ ordered. EDMS EDMS 04:50 04:50 Troponin High Sensitivity+C.LAB.BRZ ordered. EDMS EDMS 04:50 04:50 LIPASE+C.LAB.BRZ ordered. EDMS EDMS 04:50 04:50 Urinalysis+U.LAB.BRZ ordered. EDMS EDMS 04:50 04:50 Chest Single View+RAD.RAD.BRZ ordered. EDMS EDMS 05:30 05:30 THYROID STIMULAT HORMONE+C.LAB.BRZ ordered. EDMS EDMS 05:36 05:35 PMHx: ectopic ; br2 br2 06:42 06:42 LIPID PROFILE+C.LAB.BRZ ordered. EDMS EDMS 06:47 06:46 [facility] [place] [facility] frank frank 09:27 06:47 [facility] [place] [facility] kc6
[2025-02-19] MEDS ORDERED: ENOXAPARIN 100 MG/ML SYR SQ ONE (06:51)
[2025-02-19] MEDS ORDERED: METOPROLOL TAR 50 MG TAB ONE (06:51)
[2025-02-19] MEDS ORDERED: CLOPIDOGREL 75 MG TABLET ONE (06:52)
[2025-02-19] MEDS ORDERED: MORPHINE 4 MG/ML SYR ONE (06:53)
[2025-02-19] MEDS ORDERED: METOPROLOL TARTRATE 5 MG/5 ML INJ IV ONE (06:53)
[2025-02-19] MEDS ORDERED: ENOXAPARIN 30 MG/0.3 ML SQ ONE (06:54)
[2025-02-19] MEDS ORDERED: FAMOTIDINE 20 MG/2 ML VIAL IV ONE (07:50)
[2025-02-19 09:32] VITALS: TEMP 97.4
[2025-02-19 09:37] VITALS: BP 157/89; O2SAT 95
== END 2025-02-19 09:27 | disposition short-term general hospital (02) ==
LOC: ER 04:27
DX: I20.0 Unstable angina (principal); I10 Essential (primary) hypertension; R11.0 Nausea; R42 Dizziness and giddiness; E66.9 Obesity, unspecified
CPT/HCPCS: 93005; 85025; 80048; 36415; 83735; 80061; 80076; 84443; 84484; 83690; 83880; 70450; 71045; J1650 ×2; J2405 ×2; J7040; 96361; 96372; 96374; 96375; 99285